=== PATIENT | female | born 1970 | race Caucasian/White ===

== ENCOUNTER 2017-05-08 19:05 | Inpatient (IN) ==
[2017-05-08] MEDS ORDERED: *HR* FentaNYL (PF) 100 MCG/2 ML VIAL ONE (19:10)
[2017-05-08] MEDS ORDERED: 0.9 % Sodium Chloride 1,000 ML ONE (19:14)
[2017-05-08] MEDS ORDERED: 0.9 % Sodium Chloride 1,000 ML IVC ONE (19:20)
[2017-05-08] MEDS ORDERED: Ondansetron 4 MG/2 ML VIAL IVP ONE (19:23)
[2017-05-08] MEDS ORDERED: Lidocaine 1% 20 ML MDV ID ONE (19:42)
[2017-05-08] MEDS ORDERED: *HR* FentaNYL (PF) 100 MCG/2 ML VIAL IVP ONE (19:42)
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
[2017-05-08] MEDS ORDERED: Bupivacaine-MPF 0.25% 10 ML VIAL INFILT ONE (20:07)
[2017-05-08] MEDS ORDERED: Ondansetron 4 MG/2 ML VIAL IVP PRN (21:59)
[2017-05-08] MEDS ORDERED: Acetaminophen 325 MG TABLET PO PRN (21:59)
[2017-05-08] MEDS ORDERED: *HR* Morphine 2 MG/ML SYRINGE IVP PRN (21:59)
[2017-05-08] MEDS ORDERED: Naloxone 0.4 MG/ML INJ IVP PRN (21:59)
[2017-05-08] MEDS ORDERED: 0.9 % Sodium Chloride 1,000 ML IVC SCH (22:00)
--- NOTE | 2017-05-08 22:21 | Emergency Department Note ---
START Narrative - START START: Patient was admitted to hospitalist service by previous team. She complained to nursing staff that her left hand was hurting. (Patient is right handed). Exam shows neurovascularly intact left hand with bruising and tenderness surrounding the base of the 5th metacarpal on the left. I ordered x-ray here in the ED, and it showed: Comminuted intra-articular fracture of the base of the 5th metacarpal. Remainder of metacarpals, carpal phalanges, carpus appear aligned and intact. Patient placed in ulnar splint by Cara Reyna. Neurovascularly intact LUE after splinting. Orthopedics, Dr. Calderon, was contacted and will follow up with patient. Consult order placed. Dr. Rojas, hospitalist, was made aware that x-ray images were obtained.
[2017-05-08 22:29] LABS: Basophils % 0.1 %; Eosinophils % 0.1 %; Hematocrit 43.6 % (35.3-44.9); Hemoglobin 14.2 g/dL (11.5-15.4); Immature Granulocytes % 0.4 % (0-4); Lymphocytes # 1.5 K/mcL (0.6-4.6); Lymphocytes % 9.8 %; Mean Corpuscular HGB Conc 32.6 g/dL (31.6-35.5); Mean Corpuscular Hemoglobin 29.3 pg (28.0-33.3); Mean Corpuscular Volume 90.1 fL (83.0-100.0); Mean Platelet Volume 9.2 fL (9.4-12.4); Monocytes # 0.3 K/mcL (0.0-1.3); Monocytes % 1.7 %; Neutrophils # 13.3 K/mcL (1.6-8.9); Platelet Count 299 K/mcL (140-400); Red Blood Count 4.84 M/mcL (3.82-4.97); Red Cell Distribution Width 12.8 % (11.5-14.5); Segmented Neutrophils % 87.9 %
[2017-05-08 22:34] LABS: INR 1.1; Prothrombin Time 11.8 Seconds (9.4-12.1)
[2017-05-08 22:42] LABS: BUN/Creatinine Ratio 15 (6-26); Blood Urea Nitrogen 11 mg/dL (7-20); Calcium 9.4 mg/dL (8.6-10.8); Carbon Dioxide 27 mEq/L (19-29); Chloride 107 mEq/L (98-109); Glucose 122 mg/dL (70-99); Osmolality,Calculated 293 (280-300); Potassium 3.8 mEq/L (3.5-4.5); Sodium 141 mEq/L (136-145); eGFR For African Americans > 60 (> 60); eGFR For Non-African Americans > 60 (> 60)
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
[2017-05-09] MEDS: Nicotine 21 MG PATCH.TD24 TD SCH ×3 (00:29→16:55)
[2017-05-09] MEDS ORDERED: hydrOXYzine pamoate 25 MG CAPSULE PO ONE (00:33)
[2017-05-09] MEDS: Ketorolac 30 MG/ML VIAL IVP PRN ×2 (00:45→09:15)
[2017-05-09] MEDS: *HR* Heparin 5,000 UNIT/ML VIAL SQ SCH ×4 (01:12→23:03)
[2017-05-09] MEDS ORDERED: Acetaminophen IV 500 MG/50 ML INFUS..BTL IVPB ONE (04:04)
[2017-05-09 05:06] LABS: Basophils % 0.2 %; Eosinophils # 0.1 K/mcL (0.0-0.6); Eosinophils % 0.6 %; Hematocrit 40.3 % (35.3-44.9); Hemoglobin 13.3 g/dL (11.5-15.4); Immature Granulocytes % 0.3 % (0-4); Lymphocytes # 2.8 K/mcL (0.6-4.6); Lymphocytes % 25.9 %; Mean Corpuscular Hemoglobin 29.7 pg (28.0-33.3); Mean Platelet Volume 9.3 fL (9.4-12.4); Monocytes # 0.5 K/mcL (0.0-1.3); Monocytes % 4.3 %; Neutrophils # 7.5 K/mcL (1.6-8.9); Platelet Count 270 K/mcL (140-400); Red Blood Count 4.48 M/mcL (3.82-4.97); Red Cell Distribution Width 12.9 % (11.5-14.5); Segmented Neutrophils % 68.7 %
[2017-05-09 05:12] LABS: BUN/Creatinine Ratio 19 (6-26); Blood Urea Nitrogen 13 mg/dL (7-20); Calcium 9.2 mg/dL (8.6-10.8); Carbon Dioxide 25 mEq/L (19-29); Chloride 107 mEq/L (98-109); Glucose 114 mg/dL (70-99); Osmolality,Calculated 289 (280-300); Sodium 139 mEq/L (136-145); eGFR For African Americans > 60 (> 60); eGFR For Non-African Americans > 60 (> 60)
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
[2017-05-09] MEDS ORDERED: Bupivacaine/EPI 1:200k 0.5%PF 10 ML VIAL ONE (09:49)
[2017-05-09] MEDS ORDERED: Albuterol 2.5 MG/3 ML NEBULIZER IH ONE (10:11)
[2017-05-09] MEDS ORDERED: Albuterol 2.5 MG/3 ML NEBULIZER ONE (10:12)
--- NOTE | 2017-05-09 10:29 | Anesthesia Evaluation PreOp ---
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: Denies Any Significant HX Other Medical History: Other ([place]) Anesthesia History: No Prior Anesthetic Complications : No (Hysterectomy) Alcohol Use: none Drug use: none (suboxone), IV Drug Use Medications and Allergies Buprenorphine HCl/Naloxone HCl [Suboxone 8 mg-2 mg Sl Film] 1 each SL BID [History] 3 Allergy/AdvReac Type Severity Reaction Status Date / Time No Known Allergies Allergy Verified 05/13/15 06:51 - Meds/Allergy Pre-op Review Medications Reviewed: Yes Allergies Reviewed: Yes Beta Blockers on Current Med List: No Anesthesia Results - Labs 05/09/17 04:35 05/09/17 04:35 Anesthesia Exam O2 Sat Height 1.57 m Weight 113.398 kg Weight 104.326 kg O2 Sat by Pulse Oximetry 94 O2 Sat by Pulse Oximetry 94 O2 Sat by Pulse Oximetry 98 O2 Sat by Pulse Oximetry 96 Vital Signs Temp Pulse Resp BP Pulse Ox 98.5 F 90 18 137/82 96 05/08/17 19:07 05/08/17 19:07 05/08/17 19:07 05/08/17 19:07 05/08/17 19:07 Height: 5'2 Weight: 250 lbs NPO (# of Hours): MN Pain Scale: 0 - HEENT Pupil (Motor): Pupils equal, EOMI Mallampati: III Denture Type: Upper: Complete Oral Opening: Less than or equal to 3 - 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 TECHNICIAN LOC: Oriented 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
[2017-05-09] MEDS ORDERED: Ringers Solution, Lactated 1,000 ML IVC SCH (10:30)
[2017-05-09] MEDS ORDERED: *HR* Midazolam HCl 2 MG/2 ML VIAL ONE (10:31)
[2017-05-09] MEDS ORDERED: *HR* FentaNYL (PF) 100 MCG/2 ML VIAL ONE ×2 (10:31→11:06)
[2017-05-09] MEDS ORDERED: *HR* Propofol 200 MG/20 ML VIAL IVP ONE (10:31)
[2017-05-09] MEDS ORDERED: Lidocaine -MPF 2% 2 ML VIAL ONE (10:31)
[2017-05-09] MEDS ORDERED: ROPIVACAINE HCL/PF 0.5% 30 ML VIAL ONE (10:38)
[2017-05-09] MEDS ORDERED: Bupivacaine/Clonidine Syringe 1 EACH SYRINGE ONE (10:40)
[2017-05-09] MEDS ORDERED: Lidocaine -MPF 4% 5 ML AMPUL ONE (11:01)
[2017-05-09] MEDS ORDERED: *HR* Succinylcholine 200 MG/10 ML VIAL IVP ONE (11:01)
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
[2017-05-09] MEDS ORDERED: *HR* HYDROmorphone (PF) 1 MG/ML SYRINGE IVP PRN (11:29)
[2017-05-09] MEDS ORDERED: Ondansetron 4 MG/2 ML VIAL IVP PRN ×2 (11:29→13:29)
--- NOTE | 2017-05-09 11:29 | Anesthesia Procedures ---
Date of Encounter: 05/09/17 Time of Encounter: 10:26 Procedures: Anesthesia - Nerve Block Procedure Date: 05/09/17 Time: 10:35 Pre-op Diagnosis: Fracture Rt Ankle Surgical Procedure: ORIF Rt Ankle Checklist: Correct Patient Identifier Correct side: Right Blood Thinner: No Monitor Applied: EKG, BP, Pulse Oximetry Supplemental Oxygen via Nasal Cannula (L/min): 2 Sedation: Versed (mg): 2 Sedation: Fentanyl (mcg): 2 Indication: Post Op Analgesia Pre-op Neuro Deficits: No Block Type: Popliteal, Other (Adductor Canal Block) Catheter placed: No Depth at skin (cm): 2 Sterile Technique: Yes Ultrasound used: Yes Anatomy identified: Yes Visual spread of Local: Yes Neuro Stimulation: Yes Nerve Stimulator Range: 0.2 - 0.4 mA Blood on Needle Aspiration: No Smooth Injection of Local: Yes Pain with Injection of Local: No Prep: Chlorhexadine Needle: 21 x 100 mm Stimuplex Local: 0.25% Bupivicaine w/Clonidine 20 mcg/cc (plus 10cc 0.5% Bupiv plain), Ropivacaine (0.5%) Volume (cc): 30cc Ropiv, 30cc Bupivaca Number of Attempts: 1 Complications: None/effective block Comments: patient tolerated procedure well
[2017-05-09] MEDS ORDERED: Dexamethasone 4 MG/ML VIAL ONE (12:18)
[2017-05-09] MEDS ORDERED: Ondansetron 4 MG/2 ML VIAL ONE (12:18)
[2017-05-09] MEDS ORDERED: Acetaminophen IV 1,000 MG/100 ML INFUS..BTL ONE (12:22)
[2017-05-09] MEDS ORDERED: Ketorolac 30 MG/ML VIAL ONE (12:42)
[2017-05-09] MEDS ORDERED: *HR* Morphine 2 MG/ML SYRINGE IVP PRN (12:59)
--- NOTE | 2017-05-09 12:59 | Anesthesia Evaluation Post Op ---
Date of Encounter: 05/09/17 Time of Encounter: 13:10 - Vital Signs Vital Signs: Vital Signs/O2 Sat/Glucose, Most Current Pulse Resp Pulse Ox 05/09/17 10:43 76 16 100 - Lungs Lungs: Clear Ascult./Percussion - Airway Airway: Non-obstructed - Cardiovascular Regular Rate - Mental Status Mental Status: Alert & Oriented, Answers Appropriately - Pain Pain Scale: 1 - Nausea Vomiting Nausea Vomiting: Not Present - Hydration Hydration: NPO - Discharge PostOp Status: Transfer Patient to floor
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
[2017-05-09] MEDS ORDERED: Acetaminophen 325 MG TABLET PO PRN (13:29)
[2017-05-09] MEDS ORDERED: Ketorolac 30 MG/ML VIAL IVP PRN (13:29)
[2017-05-09] MEDS ORDERED: Naloxone 0.4 MG/ML INJ IVP PRN (13:29)
[2017-05-09] MEDS ORDERED: ceFAZolin 2,000 MG in Water for inj. (sterile) 20 ML IVPB SCH ×2 (14:00→19:00)
[2017-05-09] MEDS: 0.9 % Sodium Chloride 1,000 ML IVC SCH (16:56)
[2017-05-09] MEDS ORDERED: Water for inj. (sterile) 20 ML IV ONE (18:36)
[2017-05-09] MEDS: CeFAZolin Premix DUPLEX 2,000 MG/50 ML BAG IVPB SCH (18:59)
[2017-05-09] MEDS ORDERED: CeFAZolin Pre 2,000 MG/100 ML 2,000 MG/100 ML BAG IVPB SCH (19:00)
[2017-05-09] MEDS ORDERED: CeFAZolin Premix DUPLEX 2,000 MG/50 ML BAG IVPB SCH (19:00)
[2017-05-09] MEDS: *HR* OxyCODONE/APAP 5/325 TABLET PO PRN (23:02)
[2017-05-09] MEDS ORDERED: hydrOXYzine pamoate 25 MG CAPSULE PO PRN (23:15)
[2017-05-10] MEDS: *HR* Morphine 2 MG/ML SYRINGE IVP PRN ×2 (01:06→09:02)
[2017-05-10] MEDS: CeFAZolin Premix DUPLEX 2,000 MG/50 ML BAG IVPB SCH (03:19)
[2017-05-10 04:42] LABS: Basophils % 0.1 %; Hematocrit 35.8 % (35.3-44.9); Immature Granulocytes % 0.4 % (0-4); Lymphocytes # 2.2 K/mcL (0.6-4.6); Lymphocytes % 18.2 %; Mean Corpuscular HGB Conc 31.6 g/dL (31.6-35.5); Mean Corpuscular Hemoglobin 28.7 pg (28.0-33.3); Mean Corpuscular Volume 90.9 fL (83.0-100.0); Mean Platelet Volume 9.5 fL (9.4-12.4); Monocytes # 0.6 K/mcL (0.0-1.3); Monocytes % 4.8 %; Neutrophils # 9.1 K/mcL (1.6-8.9); Platelet Count 240 K/mcL (140-400); Red Blood Count 3.94 M/mcL (3.82-4.97); Red Cell Distribution Width 12.7 % (11.5-14.5); Segmented Neutrophils % 76.5 %
[2017-05-10 04:52] LABS: BUN/Creatinine Ratio 22 (6-26); Blood Urea Nitrogen 17 mg/dL (7-20); Calcium 8.7 mg/dL (8.6-10.8); Carbon Dioxide 27 mEq/L (19-29); Chloride 108 mEq/L (98-109); Glucose 157 mg/dL (70-99); Osmolality,Calculated 295 (280-300); Sodium 140 mEq/L (136-145); eGFR For African Americans > 60 (> 60); eGFR For Non-African Americans > 60 (> 60)
[2017-05-10 04:53] LABS: Hemoglobin 11.3 g/dL (11.5-15.4)
[2017-05-10] MEDS: *HR* OxyCODONE/APAP 5/325 TABLET PO PRN ×2 (07:29→12:44)
[2017-05-10] MEDS: Nicotine 21 MG PATCH.TD24 TD SCH (08:32)
[2017-05-10] MEDS: *HR* Heparin 5,000 UNIT/ML VIAL SQ SCH (08:34)
[2017-05-10] MEDS ORDERED: Nicotine 21 MG PATCH.TD24 TD SCH (09:00)
[2017-05-10] MEDS: 0.9 % Sodium Chloride 1,000 ML IVC SCH (09:02)
[2017-05-10] MEDS ORDERED: (Buprenorphine Hcl/Naloxone Hcl [Suboxone 8 Mg-2 Mg S) SL SCH (09:45)
[2017-05-10 12:02] VITALS: BP 107/64
--- NOTE | 2017-05-10 12:38 | Podiatry Progress Note ---
Date of Encounter: 05/10/17 Time of Encounter: 12:10 - Assessment and Plan (1) Ankle fracture Status: Acute Posterior splint dry and intact. Toes are pink, warm and dry. Plan: Leave posterior splint dry and intact until f/u appointment in Podiatry Clinic. Discussed plan of care with patient. Remain strict non weight bearing to RLE. PT evaluated patient and recommended a platform walker upon discharge. Patient states her sister has a wheelchair. Prescriptions printed for Zofran and Xarelto. Patient states she is self pay, discussed use of Aspirin 325 mg PO daily if unable to afford Xarelto. Patient made aware Aspirin is not proven as effective for preventing blood clots. Hospitalist spoke with Dr. Conley (patients prescriber of Suboxone) this morning. Defer pain management to Hospitalist. F/u in Podiatry clinic with Dr. Payne one week after discharge from hospital. Qualifiers: Encounter type: initial encounter Fracture type: closed Laterality: right Qualified Code(s): S82.891A - Other fracture of right lower leg, initial encounter for closed fracture (2) DVT prophylaxis Status: Acute (3) Opioid dependence on agonist therapy Status: Chronic (4) Closed right ankle fracture Status: Acute Qualifiers: Encounter type: initial encounter Qualified Code(s): S82.891A - Other fracture of right lower leg, initial encounter for closed fracture Subjective Interval history: Patient is lying in bed with posterior splint dry and intact to the right lower extremity. Objective - Vital Signs Vital Signs: Vital Signs Temp Pulse Resp BP Pulse Ox 05/10/17 10:11 98.1 F 68 14 107/64 98 05/10/17 07:00 97.9 F 64 16 104/67 96 05/10/17 03:38 97.8 F 56 18 107/63 96 05/10/17 00:00 97.7 F 68 19 111/61 96 05/09/17 20:14 97.8 F 60 17 106/66 96 05/09/17 16:56 97.7 F 60 16 100/65 94 05/09/17 15:56 98.9 F 63 15 99/63 93 05/09/17 14:27 97.6 F 65 12 108/67 94 05/09/17 14:04 98.6 F 64 12 105/71 93 05/09/17 13:34 98.2 F 71 12 138/85 92 05/09/17 13:20 98.1 F 71 18 126/73 94 05/09/17 13:10 71 18 119/64 94 05/09/17 13:00 73 18 131/77 93 05/09/17 12:49 98.2 F 77 16 125/98 97 Intake and Output 05/09/17 05/10/17 05/10/17 23:59 07:59 15:59 Intake Total 550 / 550 200 / 200 Output Total 300 / 300 150 / 150 Balance 250 / 250 50 / 50 Intake: IV Fluids 50 / 50 Ancef Premix DUPLEX 2,000 mg In 50 / 50 50 ml @ 100 mls/hr IVPB Q8H RAVI Rx#:[id number] Oral 500 / 500 200 / 200 Output: Urine 300 / 300 150 / 150 Other: Meal Dinner Percent of Meal Consumed 95% Weight 115.8 kg Patient Weight 05/10/17 23:59 Weight 115.8 kg - Exam Exam: General appearance: alert awake oriented X 3. Calm and pleasant, no acute distress.. Vascular: Toes #1 through #5 left are pink, warm and dry, capillary refill time is immediate to digits. No erythema ascending from splint, no swelling to calf , no warmth. No pain to right calf with manual compression. Neurologic: Sensation intact with light touch to digits Postop Exam: S/P posterior splint dry and intact to left lower extremity. - Lab Result Diagrams: 05/10/17 04:23 05/10/17 04:23 Labs: Abnormal lab results WBC 11.8 K/mcL (4.3-11.1) H 05/10/17 04:23 Hgb 11.3 g/dL (11.5-15.4) L D 05/10/17 04:23 Neutrophils # 9.1 K/mcL (1.6-8.9) H 05/10/17 04:23 Glucose 157 mg/dL (70-99) H 05/10/17 04:23 POC Glucose 102 (58-89) H 05/09/17 06:34 - VTE Documentation of Mechanical Device: Intermittent pneumatic compression device Consult Discharge Plan - Plan Additional Instructions: Non weight bearing to operative leg. Keep the dressing on at all times and keep it clean and dry until the followup appointment. Take all medications as prescribed. Use platform walker with ambulation. Go to nearest emergency room for temperature over 101, any yellow, green, foul smelling, or drainage saturating the dressing, shortness of breath, chest pain, sudden loss of movement or sensation to operative leg. Referrals: Jarod Payne DPM [Partnered Physician] - 05/18/17 10:20 am (1 week) NONE,PCP [Primary Care Provider] - Sheng Hernandez MD [Partnered Physician] - 05/17/17 10:40 am (2 weeks) Prescriptions: Ondansetron [Zofran] 8 mg PO Q8HR 7 Days #21 tablet Rivaroxaban [Xarelto] 10 mg PO DAILY 20 Days #20 tablet
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
--- NOTE | 2017-05-10 15:04 | Electrocardiograph Report ---
[place] [id number] Test Date: 2017-05-08 Pat Name: Roseanne Burnette Department: 103 Room: [facility] Gender: F Assistant Customer Service Manager: MATTHEW : 1970 Requested By: Gildardo Louise Order Number: [id number] Reading MD: David Alston Measurements Intervals Lester Rate: 77 P: 20 CT: 182 QRS: 61 QRSD: 84 T: 30 QT: 353 QTc: 385 Interpretive Statements SINUS RHYTHM WITH SINUS ARRHYTHMIA NONSPECIFIC T-WAVE ABNORMALITY Electronically Signed On 05-10-2017 15:03:07 EST by David Alston
== END 2017-05-10 16:07 | disposition home or self-care (01) | DRG 313 ==
LOC: EMEROO 19:05 → 3NENU 19:05 → SUATTDRO 21:59 → 3NENU 22:52
PROVIDERS: ADMIT Family Medicine; ATTEND Internal Medicine